=== PATIENT | male | born 1955 | race Caucasian/White ===

== ENCOUNTER 2017-11-16 10:41 | Inpatient (IN) | payer OTHER ==
[2017-10-27 11:45] VITALS: BMI 36.0
--- NOTE | 2017-10-27 12:22 | PAT Medication Instructions ---
Service Date Oct 27, 2017. Current Home Medication List Acetaminophen (Extra Strength Pain Relie), 2 TABS PO DAILY PRN for Pain or Fever Aspirin (Aspirin Ec), 81 MG PO QAM Clopidogrel Bisulfate (Plavix), 75 MG PO QAM Coenzyme Q10 (Ubidecarenone) (Co Q10), 1 CAP PO QAM Fexofenadine Hcl (Beverley Allergy), 1 TAB PO DAILY PRN for allergy Fluticasone Prop/Salmeterol (Advair Diskus 500/50 60 Dose), 1 PUFFS INH BID Httykxdnuen-Ruorbbftcgn-Zhm C- (Glucosamine Chondroitin), 1 TAB PO QAM Hydrochlorothiazide (Hydrochlorothiazide), 50 MG PO Q2D Losartan Potassium (Losartan Potassium), 50 MG PO QAM Lysine HCl (Lysine), 1 TAB PO QAM Metoprolol Succinate (Toprol Xl), 25 MG PO QAM Multiple Vitamin (Multivitamin), 1 TAB PO QAM Rosuvastatin Calcium (Crestor), 5 MG PO Q2D Medication Instructions For Your Scheduled Surgery Follow your field enumerator's instructions for: Clopidogrel Bisulfate (Plavix), 75 MG PO QAM - Hold the following medications 2 weeks prior to surgery: Zvvadeixldb-Vzmvlioiuco-Hxm C- (Glucosamine Chondroitin), 1 TAB PO QAM Coenzyme Q10 (Ubidecarenone) (Co Q10), 1 CAP PO QAM Lysine HCl (Lysine), 1 TAB PO QAM - Hold the following medications the morning of surgery: Multiple Vitamin (Multivitamin), 1 TAB PO QAM Losartan Potassium (Losartan Potassium), 50 MG PO QAM Hydrochlorothiazide (Hydrochlorothiazide), 50 MG PO Q2D Fexofenadine Hcl (Beverley Allergy), 1 TAB PO DAILY PRN for allergy - Take the following medications the morning of surgery with a sip of water: Rosuvastatin Calcium (Crestor), 5 MG PO Q2D Metoprolol Succinate (Toprol Xl), 25 MG PO QAM Fluticasone Prop/Salmeterol (Advair Diskus 500/50 60 Dose), 1 PUFFS INH BID Aspirin (Aspirin Ec), 81 MG PO QAM Acetaminophen (Extra Strength Pain Relie), 2 TABS PO DAILY PRN for Pain or Fever (if needed, can be taken up to four hours before surgery) - Take the following medications as scheduled the night before surgery: Fluticasone Prop/Salmeterol (Advair Diskus 500/50 60 Dose), 1 PUFFS INH BID Acetaminophen (Extra Strength Pain Relie), 2 TABS PO DAILY PRN for Pain or Fever (if needed) Fexofenadine Hcl (Beverley Allergy), 1 TAB PO DAILY PRN for allergy If you have any questions please call us at [phone] or [phone] or [phone]
[2017-10-27 13:25] LABS: BASO % 0.6 %; BASO ABS # 0.05 K/uL (0-0.2); COMPLETE YES; EOS % 3.2 %; HEMATOCRIT 53.5 % (42-52); IG% 0.3 %; LYMPH ABS # 2.62 K/uL (1.2-3.4); MEAN CELL VOLUME 96.7 fL (80-100); MEAN CORPUSCULAR HEMOGLOBIN 32.9 pg (25-34); MEAN PLATELET VOLUME 10.4 fL (7.4-10.4); MONO % 10.7 %; NEUT % 55.2 %; PLATELET COUNT 181 K/uL (130-400); RED BLOOD COUNT 5.53 M/uL (4.7-6.1); WHITE BLOOD COUNT 8.73 K/uL (4.8-10.8)
[2017-10-27 15:06] LABS: BUN/CREATININE RATIO 16.7 (10-20); CALCIUM 9.8 mg/dl (8.5-10.1); CREATININE 1.05 mg/dl (0.60-1.40); POTASSIUM 4.4 mmol/L (3.5-5.1)
[2017-11-16] VITALS (9 sets, daily range): BP systolic 118–154; BP diastolic 62–90; PULSE 77–100; TEMP 36.4–36.8; O2SAT 91–96; Ht 193 cm; Wt 135.6 kg
[~2017-11-16] VITALS: Ht 193 cm; Wt 135.6 kg
[~2017-11-16 10:41] MED LIST: ADVIN50/60 INH; ASPI81TA28 PO; CLOP1TAB54 PO; COEN100C15 PO; CZR50 PO; FEXO1TAB49 PO; GLUCTAB7 PO; HYD50 PO; LACTATED RINGER'S 1000ML 1,000 ML IV SCH; LYSI1TAB12 PO; METO-478 PO; MULTTAB58 PO; ROSU5TAB PO; [UNRECOGNIZED DRUG - CODE] PO
--- NOTE | 2017-11-16 11:53 | History & Physical Bridge Note ---
H&P Re-Evaluation Bridge Note: I have examined the patient, reviewed the History & Physical and in the interval since the performance of the History & Physical I have noted the following changes of clinical significance: No changes noted
--- NOTE | 2017-11-16 11:55 | History and Physical ---
History & Physical Date Nov 16, 2017. Chief Complaint Back and leg pain History of Present Illness The patient is a 62 year old male with complaints of back and leg pain Additional History Hepatic Disease: No Endocrine Disorder: No Kidney Disease: No Hypertension: Yes Heart Disease: No Bleeding Tendencies: No Infectious Diseases: No Allergies Coded Allergies: Lisinopril (Verified Allergy, Unknown, RASH, 11/16/17) Home Medications Scheduled Aspirin (Aspirin Ec), 81 MG PO QAM Clopidogrel Bisulfate (Plavix), 75 MG PO QAM Coenzyme Q10 (Ubidecarenone) (Co Q10), 1 CAP PO QAM Fluticasone Prop/Salmeterol (Advair Diskus 500/50 60 Dose), 1 PUFFS INH BID Hyqxrstlkmf-Lziogoeaqie-Ofh C- (Glucosamine Chondroitin), 1 TAB PO QAM Hydrochlorothiazide (Hydrochlorothiazide), 50 MG PO Q2D Losartan Potassium (Losartan Potassium), 50 MG PO QAM Lysine HCl (Lysine), 1 TAB PO QAM Metoprolol Succinate (Toprol Xl), 25 MG PO QAM Multiple Vitamin (Multivitamin), 1 TAB PO QAM Rosuvastatin Calcium (Crestor), 5 MG PO Q2D Scheduled PRN Acetaminophen (Extra Strength Pain Relie), 2 TABS PO DAILY PRN for Pain or Fever Fexofenadine Hcl (Beverley Allergy), 1 TAB PO DAILY PRN for allergy Physical Examination Skin: warm/dry, no rash Eyes: normal inspection, EOMI, sclerae normal ENT: normal ENT inspection, pharynx normal Head: normocephalic, atraumatic Neck: supple, no adenopathy, trachea midline Respiratory/Chest: lungs clear, normal breath sounds, no respiratory distress Cardiovascular: regular rate, rhythm, no edema, no murmur Abdomen / GI: normal bowel sounds, non tender Back: normal inspection Extremities: normal inspection, normal range of motion Neurologic/Psych: no motor/sensory deficits, alert, normal reflexes, oriented x 3 Diagnosis Lumbar spinal stenosis Plan of Treatment L4 5 decompression and fusion
[2017-11-16] MEDS ORDERED: MIDAZOLAM HCL 1 MG/ML 2ML VIAL ONE (11:56)
[2017-11-16] MEDS ORDERED: FENTANYL CITRATE INJ 50 MCG/1 ML 2 ML VIAL ONE ×3 (11:56→13:55)
[2017-11-16] MEDS ORDERED: BACITRACIN 50000 UNIT VIAL ONE (12:24)
[2017-11-16] MEDS ORDERED: BUPIVACAINE/EPINEPHRINE 0.5% MPF 1:200,000 30 ML VIAL ONE (12:24)
[2017-11-16] MEDS ORDERED: CEFAZOLIN SOD 3000MG/15 ML IV PUSH IV ONE (12:32)
[2017-11-16] MEDS ORDERED: NURSING VERBAL MED ORDER ONE (12:45)
[2017-11-16] MEDS ORDERED: HYDROmorphone INJ 2 MG/ML SYR/VIAL ONE ×2 (12:49→14:05)
[2017-11-16] MEDS ORDERED: FLOSEAL HEMOSTATIC MATRIX 5ML TOP ONE (14:13)
[2017-11-16] MEDS ORDERED: ROCURONIUM BROMIDE 10 MG/ML 5 ML VIAL IV ONE (14:15)
[2017-11-16] MEDS ORDERED: NEOSTIGMINE METHYLSULFATE 1 MG/ML 10ML VIAL ONE (14:15)
[2017-11-16] MEDS ORDERED: GLYCOPYRROLATE INJ 0.2 MG/ML VIAL ONE (14:15)
[2017-11-16] MEDS ORDERED: EpHEDrine SULFATE 50MG/5ML SYR ONE (14:15)
[2017-11-16] MEDS ORDERED: PROPOFOL IV EMULSION 10 MG/ML 20 ML VIAL IV ONE (14:15)
[2017-11-16] MEDS ORDERED: ONDANSETRON INJ 2 MG/ML 2 ML VIAL ONE (14:15)
[2017-11-16] MEDS ORDERED: LIDOCAINE HCL 2% 2 ML VIAL (20MG/ML) ONE (14:15)
[2017-11-16] MEDS ORDERED: DEXAMETHASONE SOD INJ 4 MG/ML VIAL ONE (14:15)
[2017-11-16] MEDS ORDERED: SODIUM CHLORIDE 0.9% 1000ML 1,000 ML IV SCH (14:23)
--- NOTE | 2017-11-16 14:29 | [facility] Operative Report ---
Operative Report Operative Date Nov 16, 2017. Pre-Operative Diagnosis Lumbar Spinal Stenosis Post-Operative Diagnosis Lumbar Spinal Stenosis Procedure(s) Performed #1 revision decompression medial facetectomy foraminotomies L4 5. #2 posterior spinal fusion L4 5. #3 placement posterior instrumentation L4 5. #4 interbody fusion L4 5. #5 placement peek cage 13 x 26 mm at L4 5. #6 placement locally harvested morcellized autograft in the posterior lateral gutters. #7 placement infuse collagen sponge commode Master graft in the posterior gutters and ostial amp bone graft in the interbody spaces. Surgeon Dr. Rodriguez Stock Supervisor Surgeon(s) Lelo Giraldo PA-C Estimated Blood Loss 300ml Findings Severe spinal stenosis Specimens none per surgeon Description of Procedure Patient was met with preoperatively case discussed all questions addressed. After informed consent was obtained patient was taken to the operative suite underwent intubation placed in a prone position on the Oleg table on top of the Dane frame. All bony prominences well-padded eyes inspected to ensure no external pressure placed upon them. This point the lumbar spine is prepped and draped nostril fashion. Sharp dissection with the assistance of Bovie cautery was performed onto an exposing the remaining lamina and transverse processes of L4 and L5 bilaterally. Then performed a revision complete decompression at L4 5 including facetectomy foraminotomy on the right. Severe spinal stenosis was identified and addressed. After this complete pedicle screws are placed in L4 and L5 bilaterally with assistance of fluoroscopy and the probably size sixto placed. Through a transforaminal approach on the right complete discectomy was performed and plate created to subcortical bleeding bone and a 13 x 26 mm peek cage filled with ostial amp bone graft tapped in position. The rods were then locked and final position bilaterally. The transverse processes of L4 and L5 burred to subcortical bleeding bone. Infuse collagen sponge mask graft locally harvested morcellized autograft was placed in the posterior lateral gutters. 15 round JOANA drain inserted. Incision was then closed with 1 Vicryl fascia 2-0 Vicryl subcutaneous tediously 4 Monocryl for Lisa closure Steri-Strips sterile dressings placed. Patient we can take PACU stable condition. Please note Lelo Arce was present at the entire procedure involved in patient positioning complex portions of the surgery and final skin closure. I attest to the content of the Intraoperative Record and any orders documented therein. Any exceptions are noted below.
[2017-11-16] MEDS ORDERED: HYDROmorphone HCL 0.5MG/ML 50 ML CASSETTE IV PRN (14:30)
[2017-11-16] MEDS ORDERED: ACETAMINOPHEN 500 MG TAB PO PRN (14:30)
[2017-11-16] MEDS ORDERED: SOD PHOSPHATE/SOD BIPHOSPHATE ENEMA 132 ML BTL PR PRN (14:30)
[2017-11-16] MEDS ORDERED: ACETAMINOPHEN IV 100 ML IV PRN (14:30)
[2017-11-16] MEDS ORDERED: ALUMINUM/MAGNESIUM SUSP 30 ML UDC PO PRN (14:30)
[2017-11-16] MEDS ORDERED: LORAZEPAM 0.5 MG TAB PO PRN (14:30)
[2017-11-16] MEDS ORDERED: hydrOXYzine HCL 25 MG TAB PO PRN (14:30)
[2017-11-16] MEDS ORDERED: DO NOT ADMINISTER FLU VACCINE PRN ×3 (14:30)
[2017-11-16] MEDS ORDERED: PROMETHAZINE HCL INJ 12.5 MG in SODIUM CHLORIDE 0.9% 50ML 50 ML IV PRN (14:30)
[2017-11-16] MEDS ORDERED: BISACODYL 10 MG SUPP PR PRN (14:30)
[2017-11-16] MEDS ORDERED: LORAZEPAM INJ 0.5 MG in SYRINGE 0 ML IV PRN (14:30)
[2017-11-16] MEDS ORDERED: METOCLOPRAMIDE HCL INJ 5 MG/ML 2 ML VIAL IV PRN (14:30)
[2017-11-16] MEDS ORDERED: FEXOFENADINE HCL 180 MG TAB PO PRN (14:30)
[2017-11-16] MEDS ORDERED: NALOXONE HCL 0.4 MG/1 ML VIAL/CARP IV PRN ×2 (14:30)
[2017-11-16] MEDS ORDERED: MAGNESIUM HYDROXIDE SUSP 30 ML UDC PO PRN (14:30)
[2017-11-16] MEDS ORDERED: DO NOT ADMINISTER PNEUMOCOCCAL VACCINE PRN ×2 (14:30)
[2017-11-16] MEDS ORDERED: ONDANSETRON INJ 2 MG/ML 2 ML VIAL IV PRN (14:30)
[2017-11-16] MEDS ORDERED: FAMOTIDINE 20 MG TAB PO PRN (14:30)
--- NOTE | 2017-11-16 14:34 | DIAGNOSTIC IMAGING REPORT ---
INTRAOPERATIVE LUMBAR SPINE 2 VIEWS CLINICAL HISTORY: L4-5 DECOMPRESSION/FUSION COMPARISON STUDY: No previous studies for comparison. FINDINGS: 78 seconds of fluoroscopic time was utilized. 2 intraoperative fluoroscopic spot images are provided for interpretation. There are postsurgical changes of an L4-5 discectomy and interbody fusion. There is posterior pedicle screw fixation. IMPRESSION: Postsurgical changes at the L4-5 level. Electronically signed by: Wes Vizcaino M.D. 11/16/2017 2:33 PM Dictated Date/Time: 11/16/2017 2:32 PM
[2017-11-16] MEDS ORDERED: HYDROmorphone HCL 0.5MG/ML 50 ML CASSETTE ONE (14:39)
[2017-11-16] MEDS ORDERED: ESMOLOL HCL 10 MG/ML 10 ML VIAL ONE (14:44)
--- NOTE | 2017-11-16 15:28 | Anesthesiology Progress Note ---
Anesthesia Post Op Note Date & Time Nov 16, 2017 at 15:28 Vital Signs Pain Intensity: 0 Vital Signs Past 12 Hours Date Time Temp Pulse Resp B/P (MAP) Pulse Ox O2 Delivery O2 Flow Rate FiO2 11/16/17 15:15 36.6 81 12 139/83 94 Nasal Cannula 4 11/16/17 15:05 84 14 138/80 95 Nasal Cannula 4 11/16/17 14:55 84 17 142/82 95 Oxymask 15 11/16/17 14:45 86 14 139/83 96 Oxymask 15 11/16/17 14:38 36.5 88 14 140/86 92 Oxymask 15 11/16/17 11:15 36.7 77 20 154/83 91 Room Air Notes Mental Status: alert / awake / arousable, participated in evaluation Pt Amnestic to Procedure: Yes Nausea / Vomiting: adequately controlled Pain: adequately controlled Airway Patency, RR, SpO2: stable & adequate BP & HR: stable & adequate Hydration State: stable & adequate Anesthetic Complications: no major complications apparent
[2017-11-16] MEDS: CEFAZOLIN IV 3,000 MG in SYRINGE 0 ML IV SCH (19:58)
[2017-11-16] MEDS: SODIUM CHLORIDE 0.9% 1000ML 1,000 ML IV SCH (19:59)
[2017-11-16] MEDS ORDERED: NURSING DECISION MEDICATION ORDER SCH (20:30)
[2017-11-16] MEDS: FLUTICASONE/SALMETEROL (ADVAIR) 500/50 INH 14 PUFF INH SCH (21:05)
[2017-11-16] MEDS: DOCUSATE SODIUM/SENNA 50/8.6MG TAB PO SCH (21:06)
[2017-11-17] VITALS (9 sets, daily range): BP systolic 120–149; BP diastolic 69–91; PULSE 72–96; TEMP 36.5–36.8; O2SAT 89–93
[2017-11-17] MEDS: SODIUM CHLORIDE 0.9% 1000ML 1,000 ML IV SCH (00:53)
[2017-11-17] MEDS: CEFAZOLIN IV 3,000 MG in SYRINGE 0 ML IV SCH (04:20)
[2017-11-17] MEDS ORDERED: NURSING VERBAL MED ORDER ONE ×2 (05:30→18:00)
[2017-11-17] MEDS ORDERED: DC PCA SCH (06:00)
[2017-11-17] MEDS ORDERED: HYDROmorphone INJ 0.5 MG/0.5 ML SYR IV PRN (06:01)
[2017-11-17 06:51] LABS: BASO % 0.1 %; BASO ABS # 0.01 K/uL (0-0.2); COMPLETE YES; EOS % 0.1 %; HEMATOCRIT 44.9 % (42-52); IG% 0.2 %; LYMPH % 8.4 %; LYMPH ABS # 1.19 K/uL (1.2-3.4); MEAN CELL VOLUME 97.2 fL (80-100); MEAN CORPUSCULAR HEMOGLOBIN 32.3 pg (25-34); MEAN CORPUSCULAR HGB CONC 33.2 g/dl (32-36); MEAN PLATELET VOLUME 10.2 fL (7.4-10.4); MONO % 7.5 %; NEUT % 83.7 %; PLATELET COUNT 140 K/uL (130-400); RED BLOOD COUNT 4.62 M/uL (4.7-6.1); WHITE BLOOD COUNT 14.22 K/uL (4.8-10.8)
[2017-11-17 07:26] LABS: BUN/CREATININE RATIO 14.6 (10-20); CALCIUM 8.5 mg/dl (8.5-10.1); CREATININE 1.11 mg/dl (0.60-1.40); POTASSIUM 4.1 mmol/L (3.5-5.1)
--- NOTE | 2017-11-17 08:23 | Progress Note ---
Progress Note Date of Service Nov 17, 2017. Progress Note Patient is postop day #1. Back pain is controlled. Leg pain improved. Vital signs stable. Hematocrit stable. On exam he is in bleeding about the room narrow steady gait. Assessment status post lumbar decompression fusion replant this time will have him undergo physical therapy today and possible discharge home tomorrow.
[2017-11-17] MEDS ORDERED: KETOROLAC TROMETHAMINE 30 MG/ML VIAL IV PRN (08:30)
[2017-11-17] MEDS: METOPROLOL SUCC 25MG EXT REL TAB PO SCH (08:47)
[2017-11-17] MEDS: LOSARTAN POTASSIUM 50 MG TAB PO SCH (08:48)
[2017-11-17] MEDS: ASPIRIN 81 MG ECTAB PO SCH (08:48)
[2017-11-17] MEDS: OXYCODONE HCL IR 5 MG TAB (IMMEDIATE RELEASE) PO PRN ×3 (08:49→17:35)
[2017-11-17] MEDS: FLUTICASONE/SALMETEROL (ADVAIR) 500/50 INH 14 PUFF INH SCH ×2 (08:50→20:41)
[2017-11-17] MEDS ORDERED: HYDROCHLOROTHIAZIDE 50 MG TAB PO SCH (09:00)
[2017-11-17] MEDS ORDERED: ROSUVASTATIN CALCIUM 5 MG TAB PO SCH (09:00)
[2017-11-17] MEDS ORDERED: HYDROCORTISONE 1% CR 30 GM TUBE EXT PRN (18:00)
[2017-11-17] MEDS: DOCUSATE SODIUM/SENNA 50/8.6MG TAB PO SCH (20:41)
[2017-11-18] MEDS: OXYCODONE HCL IR 5 MG TAB (IMMEDIATE RELEASE) PO PRN ×2 (02:16→07:15)
[2017-11-18] MEDS ORDERED: POLYETHYLENE (MIRALAX) 17 GM PACK PO SCH (06:00)
[2017-11-18 07:15] VITALS: BP 130/75; PULSE 88; TEMP 36.5; O2SAT 94
[2017-11-18] MEDS: METOPROLOL SUCC 25MG EXT REL TAB PO SCH (07:15)
[2017-11-18] MEDS: ASPIRIN 81 MG ECTAB PO SCH (07:15)
[2017-11-18] MEDS: LOSARTAN POTASSIUM 50 MG TAB PO SCH (07:15)
[2017-11-18] MEDS: FLUTICASONE/SALMETEROL (ADVAIR) 500/50 INH 14 PUFF INH SCH (07:16)
[2017-11-18 07:20] VITALS: O2SAT 93
[2017-11-18] MEDS ORDERED: RXC5 PO (09:28)
--- NOTE | 2017-11-18 09:29 | Discharge Instructions ---
Discharge Instructions Date of Service Nov 18, 2017. Admission Reason for Admission: Spinal Stenosis Discharge Discharge Diagnosis / Problem: lumbar stenosis Discharge Goals Goal(s): Improve function Activity Recommendations Activity Limitations: per Instructions/Follow-up section . Instructions / Follow-Up Instructions / Follow-Up ACTIVITY RECOMMENDATIONS: SELF CARE INSTRUCTIONS AFTER THORACIC/LUMBAR FUSIONS 1. You may walk to your tolerance. It is good exercise for your legs and back. Expect some back and intermittent leg aches and pains. 2. You may perform "counter-top" level activities (make a sandwich, li with a project, etc.). 3. No bending or lifting of more than 10 pounds or back twisting of any nature (roll like a log when turning in bed). 4. You may ride in a car for 20-30 minutes at a time. No driving until after your first visit with your doctor. 5. Frequent changes of position and restricting sitting to 30 minutes at a time will help limit the amount of back spasms and stiffness you may experience. 6. You may discontinue the use of ambulatory aids (cane, crutches, etc.) once your strength and confidence allow. 7. You may dip stand loader the shower and let water strike your incision when you arrive home at least once daily. Do not take a tub bath, sit in a hot tub or go into a swimming pool until after your first recheck in the office. SPECIAL CARE INSTRUCTIONS: VERY IMPORTANT TO READ AND REVIEW A. Your surgical incision has been closed with a cosmetic suture under the skin that will dissolve in about 6 weeks. In 14 days, you can use a pair of clean scissors and cut the suture that is left outside of the skin at the ends of your incision. 1. The small skin tapes can be removed 7 days after surgery if they have not fallen off by that point. 2. You may keep the wound open to air as much as possible to promote healing after post-op day number 5 unless told otherwise by your doctor. 3. If you think the wound looks like it is becoming infected (redness or worsening drainage) and/or you are experiencing fever, chill or worsening back pain and muscle spasms, contact the office so that we may evaluate you as soon as possible. B. Complications are uncommon, but please contact us if you have any signs or symptoms of: 1. wound infection (fever higher than 102.5 degrees F, redness, separation of wound, drainage, or increasing pain from the incision) 2. blood clots in legs (pain, swelling, redness and warmth in legs) 3. urinary tract infection (fever higher than 102.5 degrees F, burning upon urination or increased frequency of urination) 4. nerve problems (inability to walk on your toes or heels, numbness, loss of bowel or bladder control) 5. any other symptoms that concern you C. Please call the office at if you have any concerns or questions about your operation or recovery. D. No smoking! Smoking drastically decreases the chance of a solid fusion. E. Do not take any anti-inflammatory medications (Indocin, Advil, Motrin, Aspirin, Naprosyn, etc.) as these may inhibit the chance of a solid fusion. Tylenol is okay to take for pain. MANAGING PAIN AFTER SPINAL SURGERY 1. Narcotic medication is intended for short-term use and will be provided for surgical pain. Surgical pain usually lasts for a period of 4-6 weeks. Narcotic medication includes Percocet, Vicodin, Darvocet, Tylenol #3 or Lortab. 2. Longer-term pain is more appropriately treated with non-narcotic medication such as Tylenol ES. 3. Muscle spasm is not appropriately treated with narcotics. Muscle relaxers such as Soma, Flexeril or Skelaxin can be used along with Tylenol ES. 4. Remember that we all live with some "aches and pains". This is not unusual or uncommon after an injury or as we get older. a. Back pain is expected and may include muscle spasms for 4 to 6 weeks after surgery. The pain should gradually improve. If the pain worsens for no apparent reason, please contact the office. b. Intermittent leg pain may also be experienced and should not be concerned about unless it worsens for no apparent reason. If so, please contact the office. 5. We will provide appropriate medication within the normal guidelines of their prescribed use. We will also be very cautious and aware of potential abuse and extended duration of patients' medication needs. a. Pain medications are for your comfort and to assist with sleep and rest so that the tissue can heal. They are not provided in order to return to normal activity and should not be used through the day. To do so or worsening pain at night can result from ongoing tissue damage and development of tolerance to the prescribed medicine. 6. Please allow 2-3 days to process refills. Prescriptions will not be mailed but must be picked up at the office. FOLLOW UP VISIT: Keep your scheduled follow-up appointment. Any questions, please call the office at . Current Hospital Diet Patient's current hospital diet: Regular Diet Discharge Diet Recommended Diet: Regular Diet Procedures Procedures Performed: #1 revision decompression medial facetectomy foraminotomies L4 5. #2 posterior spinal fusion L4 5. #3 placement posterior instrumentation L4 5. #4 interbody fusion L4 5. #5 placement peek cage 13 x 26 mm at L4 5. #6 placement locally harvested morcellized autograft in the posterior lateral gutters. #7 placement infuse collagen sponge commode Master graft in the posterior gutters and ostial amp bone graft in the interbody spaces. Pending Studies Studies pending at discharge: no Medical Emergencies . Who to Call and When: Medical Emergencies: If at any time you feel your situation is an emergency, please call 911 immediately. . Non-Emergent Contact Non-Emergency issues call your: Primary Care Provider . "Provider Documentation" section prepared by Uri Rodriguez. . VTE Core Measure Inpt VTE Proph given/why not?: Jose Osorio, SCD's
[2017-11-18 09:46] VITALS: BP 130/75; PULSE 88; TEMP 36.5; O2SAT 93
--- NOTE | 2017-11-18 10:00 | Discharge Summary ---
Orthopedic Discharge Summary Admission Date/Reason Nov 16, 2017 at 12:15 Spinal Stenosis. Discharge Date/Disposition Nov 18, 2017 Home Diagnosis Principal Diagnosis: Lumbar spinal stenosis Admission Physical Exam As per Admitting History & Physical. Hospital Course Patient underwent lumbar decompression fusion tolerated as well as taken to the orthopedic 4 postop we. Postop day #1 he was up and ambulatory leg symptoms improved progressed to postoperative day #2. JOANA drain decreased improperly. Socially discharge home. Discharge orders and instructions found the chart for further review. Discharge Instructions Please refer to the electronic Patient Visit Report (Discharge Instructions) for additional information.
== END 2017-11-18 10:38 | disposition home or self-care (01) | DRG 455 ==
LOC: C.ACU 10:41 → C.3E 12:15 → ENRESERV 15:16
PROVIDERS: ADMIT Orthopaedic Surgery Orthopaedic Surgery of the Spine; ATTEND Orthopaedic Surgery Orthopaedic Surgery of the Spine
PROC: 0SG0071 Fusion of Lumbar Vertebral Joint with Autologous Tissue Substitute, Posterior Approach, Posterior Column, Open Approach (ICD-10-PCS; principal; 2017-11-16 12:45)
PROC: 0ST20ZZ Resection of Lumbar Vertebral Disc, Open Approach (ICD-10-PCS; principal; 2017-11-16 12:45)
PROC: 0SG00AJ Fusion of Lumbar Vertebral Joint with Interbody Fusion Device, Posterior Approach, Anterior Column, Open Approach (ICD-10-PCS; principal; 2017-11-16 12:45)
DX: M48.061 Spinal stenosis, lumbar region without neurogenic claudication (principal); I10 Essential (primary) hypertension